=== PATIENT | female | born 1955 | race Caucasian/White ===

== ENCOUNTER 2018-11-25 16:28 | Outpatient (CLI) | payer MEDICARE, OTHER ==
[2018-11-25 16:55] LABS: INR 1.5 (0.8-1.2)
== END 2018-11-25 16:29 | disposition home or self-care (01) ==
LOC: LAB 16:28
PROVIDERS: ATTEND Family Medicine
DX: D68.51 Activated protein C resistance (principal); I82.4Y9 Acute embolism and thrombosis of unspecified deep veins of unspecified proximal lower extremity
CPT/HCPCS: 36415; 85610

== ENCOUNTER 2018-11-28 14:46 | Outpatient (CLI) | payer MEDICARE, OTHER | END 2018-11-28 14:47 | disposition home or self-care (01) | LOC: LAB 14:46 | PROVIDERS: ATTEND Family Medicine | DX: I82.4Y9 Acute embolism and thrombosis of unspecified deep veins of unspecified proximal lower extremity (principal); D68.51 Activated protein C resistance | CPT/HCPCS: 85610 ==